=== PATIENT | male | born 1965 | race Asian ===

== ENCOUNTER 2017-11-04 11:23 | Emergency (ER) | payer OTHER ==
[~2017-11-04] VITALS: Ht 172.7 cm; Wt 90.7 kg
[2017-11-04 11:30] VITALS: Ht 172.7 cm; Wt 90.7 kg
[2017-11-04 12:37] LABS: BASOPHIL % 0.5 % (0-2); PLATELET COUNT 252 x10^3mcL (130-400)
[2017-11-04 12:49] LABS: RED CELL DISTRIBUTION WIDTH 15.6 % (11.5-14.5)
[2017-11-04 12:50] LABS: CALCIUM 9.4 mg/dL (8.5-10.1); CARBON DIOXIDE 28.5 mmol/L (21-32); CREATININE SERUM 1.6 mg/dL (0.7-1.3); POTASSIUM SERUM 4.4 mmol/L (3.5-5.1)
[2017-11-04 12:54] LABS: BILIRUBIN TOTAL 0.9 mg/dL (0.20-1.00); MAGNESIUM 2.1 mg/dL (1.8-2.4); TOTAL PROTEIN, SERUM 6.9 g/dL (6.4-8.2)
[2017-11-04 12:55] LABS: ALBUMIN 2.6 g/dL (3.4-5.0)
[2017-11-04 13:57] VITALS: BP 110/73
[2017-11-04 15:14] LABS: T3 TOTAL 1.27 ng/mL
[2017-11-04 15:52] LABS: CHOLESTEROL/HDL RATIO 4.4; PHOSPHOROUS 3.7 mg/dL (2.5-4.9)
[2017-11-04 15:59] LABS: FREE T4 1.17 ng/dL (0.76-1.46); FREE THYROXINE INDEX 2.3 ug/dL (1.4-4.5); T4(THYROXINE) 6.5 ug/dL (4.7-13.3)
== END 2017-11-04 14:15 | disposition left against medical advice (07) ==
LOC: ED 11:23 → DU 12:56 → ED 14:15
PROVIDERS: Emergency Medicine; Family Medicine
DX: R55 Syncope and collapse (principal); I11.0 Hypertensive heart disease with heart failure; I50.9 Heart failure, unspecified
CPT/HCPCS: 36415; 83880; 84439; J7030